=== PATIENT | female | born 1990 | race Caucasian/White ===

== ENCOUNTER 2018-06-21 21:40 | Emergency (ER) | payer SELFPAY ==
[~2018-06-21] VITALS: Ht 160 cm; Wt 56.7 kg
[2018-06-21] MEDS ORDERED: ALPRAZolam 0.5 MG TABLET PO ONE (22:30)
[2018-06-21 22:35] VITALS: BP 111/67
[2018-06-21] MEDS ORDERED: ALPR0.5T PO (22:42)
--- NOTE | 2018-06-21 22:42 | PHYS DOC ---
Past Medical History Past Medical History: Anxiety, Other Additional Past Medical Histor: PANIC ATTACKS, 'THORACIC OUTLET SYNDROME' Past Surgical History: Other Additional Past Surgical Histo: CARPAL TUNNEL SURGERY X2 Alcohol Use: Occasionally Drug Use: None Adult General Chief Complaint Chief Complaint: ANXIETY/PANIC ATTACK [facility] HPI Patient is a 27 year old female who presents with anxiety and a history of panic attack earlier today. The patient states that she is seen at the anxiety clinic in [facility]. She ran out of her [facility] because her psychiatrist is currently undergoing treatment for breast cancer and had to stop practicing for a while. The patient is getting a new provider through the anxiety clinic. She denies current panic attack although she is still having anxiety. The patient denies any plans to harm herself or anyone else. She is under a lot of stress due to the fact that she is currently in school. She thinks that this might have been a contributing factor to her panic attack today. Review of Systems Review of Systems Constitutional: Denies fever or chills [] Eyes: Denies change in visual acuity, redness, or eye pain [] HENT: Denies nasal congestion or sore throat [] Respiratory: Denies cough or shortness of breath [] Cardiovascular: No additional information not addressed in HPI [] GI: Denies abdominal pain, nausea, vomiting, bloody stools or diarrhea [] : Denies dysuria or hematuria [] Musculoskeletal: Denies back pain or joint pain [] Integument: Denies rash or skin lesions [] Neurologic: Denies headache, focal weakness or sensory changes [] Endocrine: Denies polyuria or polydipsia [] All other systems were reviewed and found to be within normal limits, except as documented in this note. Current Medications Current Medications Current Medications Medications (Trade) Dose Ordered Sig/Belén Start Time Stop Time Status Last Admin Dose Admin Alprazolam (Xanax) 0.5 mg 1X ONCE 06/21/18 22:30 06/21/18 22:31 DC 06/21/18 22:35 0.5 MG Allergies Allergies Allergies Coded Allergies Type Severity Reaction Last Updated Verified No Known Drug Allergies 06/21/18 No Physical Exam Physical Exam Constitutional: Well developed, well nourished, no acute distress, non-toxic appearance. [] HENT: Normocephalic, atraumatic, bilateral external ears normal, oropharynx moist, no oral exudates, nose normal. [] Eyes: PERRLA, EOMI, conjunctiva normal, no discharge. [] Neck: Normal range of motion, no tenderness, supple, no stridor. [] Cardiovascular:Heart rate regular rhythm, no murmur [] Lungs & Thorax: Bilateral breath sounds clear to auscultation [] Abdomen: Bowel sounds normal, soft, no tenderness, no masses, no pulsatile masses. [] Skin: Warm, dry, no erythema, no rash. [] Back: No tenderness, no CVA tenderness. [] Extremities: No tenderness, no cyanosis, no clubbing, ROM intact, no edema. [] Neurologic: Alert and oriented X 3, normal motor function, normal sensory function, no focal deficits noted. [] Psychologic: The patient is anxious Current Patient Data Vital Signs Vital Signs Date Time Temp Pulse Resp B/P (MAP) Pulse Ox O2 Delivery O2 Flow Rate FiO2 06/21/18 22:35 76 20 111/67 (82) 95 Room Air 06/21/18 21:50 98.4 98.4 EKG EKG [] Radiology/Procedures Radiology/Procedures [] Course & Med Decision Making Course & Med Decision Making Pertinent Labs and Imaging studies reviewed. (See chart for details) []The patient was given a dose of Xanax in the emergency department with resolution of her anxiety. She will follow up with the anxiety clinic. She is in agreement with this plan. Dragon Disclaimer Dragon Disclaimer This electronic medical record was generated, in whole or in part, using a voice recognition dictation system. Departure Departure Impression: Primary Impression: Anxiety Disposition: 01 HOME, SELF-CARE Condition: STABLE Referrals: NO PCP (PCP) Patient Instructions: Anxiety and Panic Attacks Additional Instructions: Follow-up at your anxiety clinic for assignment of a new provider. If worsening return to the emergency department. Xanax may make you drowsy. Do not drive or operate heavy machinery while taking this medication. Scripts Alprazolam (XANAX) 0.5 Mg Tablet 0.5 MG PO PRN Q6HRS PRN for ANXIETY / AGITATION, #20 TAB 0 Refills Prov: MARY COLONHLEEN Benjie TRAFFIC II MANAGER 06/21/18 Attending Co-Sign Attending Co-Sign The patient was not seen by me. The [facility] chart was reviewed. I agree with the plan of care. WILLIAMS COLON APRN Jun 21, 2018 22:42 KESHA WILLSON MD Jun 26, 2018 09:49
== END 2018-06-21 22:50 | disposition home or self-care (01) ==
LOC: ER 21:40
DX: F41.9 Anxiety disorder, unspecified (principal)
CPT/HCPCS: 99284